=== PATIENT | female | born 1945 | race Caucasian/White ===

== ENCOUNTER → 2017-06-27 | Outpatient (CLI) | payer MEDICARE, OTHER ==
[~2017-06-27] MED LIST: APRESOLINE50 MG PO; ASPIR 8181 M1 PO; GARLIC1000 MG PO; GEMFIBROZIL600 MG PO; LEVOFLOXACIN750 MG PO; LOPRESSOR100 M1 PO; OMEGA 3 500 SO1 EACH PO; PANTOPRAZOLE SO40 MG PO; RAMIPRIL10 MG PO; ZOFRAN4 MG PO
== END | disposition home or self-care (01) ==
LOC: CDC 09:56
DX: Z01.810 Encounter for preprocedural cardiovascular examination (principal); H25.11 Age-related nuclear cataract, right eye
CPT/HCPCS: 93000

== ENCOUNTER 2017-09-09 18:21 | Inpatient (IN) | payer OTHER ==
[~2017-09-09] VITALS: Ht 167.6 cm; Wt 83.4 kg
[2017-09-09 19:12] LABS: HEMATOCRIT 39.3 % (36.0-46.0); HEMOGLOBIN 13.4 G/DL (11.9-15.5); MCHC 34.1 G/DL (30.0-36.0); MCV 85.1 FL (83-99); PLATELET COUNT 270 K/uL (156-360); RBC DIS.WIDTH-CV 12.3 % (11.8-14.6); RBC DIS.WIDTH-SD 37.8 % (39-53); RED BLOOD COUNT 4.62 M/uL (3.80-5.20); WHITE BLOOD COUNT 12.4 K/uL (4.1-10.2)
[2017-09-09] MEDS ORDERED: PRAVACHOL80 MG PO (19:12)
[2017-09-09] MEDS ORDERED: NORVASC10 MG PO (19:14)
[2017-09-09] MEDS ORDERED: VITAMIN D32000 UNI1 PO (19:17)
[2017-09-09] MEDS ORDERED: COQ-10100 MG PO (19:18)
[2017-09-09] MEDS ORDERED: VITAMIN B122500 MCG PO (19:18)
[2017-09-09 19:24] LABS: CHLORIDE 109 mEq/L (99-109); POTASSIUM 4.6 mEq/L (3.7-5.4); SODIUM 141 mEq/L (136-147)
[2017-09-09 19:26] LABS: GLUCOSE 136 mg/dL (70-99)
[2017-09-09 19:30] LABS: CREATININE 1.1 mg/dL (0.6-1.3); GFR ESTIMATE (CALCULATED) 52 mL/min/
[2017-09-09 19:31] LABS: UREA NITROGEN (BUN) 21 mg/dL (9-23)
[2017-09-09 19:38] LABS: INTER. NORMALIZED RATIO 1.2
[2017-09-09 19:41] LABS: PTT 29.7 SEC (25-37)
[2017-09-09 19:45] LABS: ALBUMIN 4.4 g/dL (3.2-4.8)
[2017-09-09 19:46] LABS: MAGNESIUM 2.2 mg/dL (1.3-2.7)
[2017-09-09 19:48] LABS: TOTAL PROTEIN 6.9 g/dL (6.4-8.3)
[2017-09-09 19:50] LABS: TOTAL BILIRUBIN 0.4 mg/dL (0.0-1.0)
[2017-09-09 19:51] LABS: ALKALINE PHOSPHATASE 52 IU/L (3-129)
[2017-09-09 19:53] LABS: AST (GOT) 18 IU/L (2-34); DIRECT BILIRUBIN 0.3 mg/dL (0.0-0.3)
[2017-09-09 19:54] LABS: ALT (GPT) 11 IU/L (3-49)
[2017-09-09 20:07] LABS: TROP-I INTERPRETATION NEGATIVE; TROPONIN-I 0.02 ng/mL (0.0-0.30)
[2017-09-09] MEDS ORDERED: PRAVASTATIN SOD80 MG PO (20:42)
[2017-09-09] MEDS ORDERED: AMLODIPINE BESY10 MG PO (20:43)
[2017-09-09] MEDS ORDERED: [UNRECOGNIZED DRUG - REMARK] LEFT EYE (22:23)
[2017-09-10] VITALS (7 sets, daily range): BP systolic 121–154; BP diastolic 59–72
[2017-09-10 01:13] LABS: HEMATOCRIT 39.2 % (36.0-46.0); HEMOGLOBIN 13.1 G/DL (11.9-15.5); MCV 87.1 FL (83-99)
[2017-09-10 05:56] LABS: HEMATOCRIT 35.2 % (36.0-46.0); HEMOGLOBIN 11.5 G/DL (11.9-15.5); MCV 86.7 FL (83-99)
[2017-09-10 06:25] LABS: ALBUMIN 3.6 G/DL (3.2-4.8); ALKALINE PHOSPHATASE 37 IU/L (3-129); ALT (GPT) 8 IU/L (3-49); AST (GOT) 11 IU/L (2-34); CHLORIDE 111 MEQ/L (99-109); CREATININE 0.8 MG/DL (0.6-1.3); GFR ESTIMATE (CALCULATED) > 59 mL/min/; GLUCOSE 103 mg/dL (70-99); SODIUM 141 MEQ/L (136-147); TOTAL BILIRUBIN 0.4 MG/DL (0.0-1.0); TOTAL PROTEIN 5.7 G/DL (6.4-8.3); UREA NITROGEN (BUN) 17 mg/dL (9-23)
[2017-09-10 15:47] LABS: HEMATOCRIT 33.8 % (36.0-46.0); HEMOGLOBIN 10.9 G/DL (11.9-15.5); MCV 87.1 FL (83-99)
[2017-09-11 03:27] VITALS: BP 123/60
[2017-09-11 07:18] VITALS: BP 106/59
[2017-09-11 08:01] LABS: HEMATOCRIT 34.4 % (36.0-46.0); HEMOGLOBIN 11.2 G/DL (11.9-15.5); MCH 28.7 PG (29.0-34.0); MCHC 32.6 G/DL (30.0-36.0); MCV 88.2 FL (83-99); PLATELET COUNT 213 K/uL (156-360); RBC DIS.WIDTH-CV 12.5 % (11.8-14.6); RBC DIS.WIDTH-SD 40.4 % (39-53); WHITE BLOOD COUNT 7.9 K/uL (4.1-10.2)
[2017-09-11 08:24] LABS: ALBUMIN 3.5 G/DL (3.2-4.8); CHLORIDE 112 MEQ/L (99-109); CREATININE 0.7 MG/DL (0.6-1.3); GFR ESTIMATE (CALCULATED) > 59 mL/min/; GLUCOSE 96 mg/dL (70-99); PHOSPHORUS 2.7 mg/dL (2.5-4.9); POTASSIUM 3.4 MEQ/L (3.7-5.4); SODIUM 142 MEQ/L (136-147); UREA NITROGEN (BUN) 6 mg/dL (9-23)
[2017-09-11 11:26] VITALS: BP 122/60
[2017-09-11 15:17] VITALS: BP 117/63
[2017-09-12 00:27] VITALS: BP 127/61
[2017-09-12 05:51] LABS: HEMATOCRIT 31.4 % (36.0-46.0); HEMOGLOBIN 10.1 G/DL (11.9-15.5); MCH 28.1 PG (29.0-34.0); MCHC 32.2 G/DL (30.0-36.0); MCV 87.5 FL (83-99); PLATELET COUNT 200 K/uL (156-360); RBC DIS.WIDTH-CV 12.4 % (11.8-14.6); RBC DIS.WIDTH-SD 39.7 % (39-53); RED BLOOD COUNT 3.59 M/uL (3.80-5.20); WHITE BLOOD COUNT 5.9 K/uL (4.1-10.2)
[2017-09-12 07:26] VITALS: BP 130/72
[2017-09-12] MEDS ORDERED: CIPRO500 MG PO (14:38)
[2017-09-12] MEDS ORDERED: FLAGYL250 MG PO (14:39)
== END 2017-09-12 15:05 | disposition home or self-care (01) | DRG 378 ==
LOC: EME 18:21 → EDOF 22:30 → 5SOUTH 22:30 → ENRESERV 22:33 → 5SOUTH 23:53
PROVIDERS: Emergency Medicine; Internal Medicine; Internal Medicine Gastroenterology; Nurse Practitioner Adult Health
PROC: 0DBL8ZX Excision of Transverse Colon, Via Natural or Artificial Opening Endoscopic, Diagnostic (ICD-10-PCS; principal; 2017-09-09)
DX: K62.5 Hemorrhage of anus and rectum (principal); K55.9 Vascular disorder of intestine, unspecified; K57.30 Diverticulosis of large intestine without perforation or abscess without bleeding; K44.9 Diaphragmatic hernia without obstruction or gangrene; D64.9 Anemia, unspecified; E78.5 Hyperlipidemia, unspecified; I25.10 Atherosclerotic heart disease of native coronary artery without angina pectoris; K64.8 Other hemorrhoids; I10 Essential (primary) hypertension; Z90.710 Acquired absence of both cervix and uterus; Z79.899 Other long term (current) drug therapy; Z95.5 Presence of coronary angioplasty implant and graft; Z90.49 Acquired absence of other specified parts of digestive tract; Z79.82 Long term (current) use of aspirin
CPT/HCPCS: 74177; 80048; 80053; 80069; 80076; 82948; 83605; 83735; 84484; 85014; 85018; 85027; 85610; 85730; 86850; 86900; 86901; 87506; 88305; 93005; 99281; 99285; J0744; J7030; J7040; S0030